=== PATIENT | male | born 1970 | race Caucasian/White ===

== ENCOUNTER 2018-03-24 21:38 | Emergency (ER) | payer BC ==
[~2018-03-24] VITALS: Ht 185.4 cm; Wt 83.9 kg
--- NOTE | 2018-03-24 21:50 | NUR ---
PT BIBSELF C/O RIGHT SIDE CHEST PAIN X2 WEEKS. DENIES SOB, N/V/D, HEADACHE, DIZZINESS, TRAUMA. PT AAOX4. RESPIRATIONS EVEN AND UNLABORED. SKIN WARM AND INTACT. NO ACUTE DISTRESS NOTED AT THIS TIME. PT PLACED ON [employer], WILL CONTINUE TO MONITOR.
--- NOTE | 2018-03-24 22:00 | NUR ---
MD AT BEDSIDE FOR EVALUATION
--- NOTE | 2018-03-24 22:10 | NUR ---
IV INITIATED RIGHT AC 18G. LABS DRAWN FROM SITE AND SENT TO LAB. IV INTACT AND PATENT, PLACED ON SALINE LOCK.
[2018-03-24] MEDS ORDERED: IBUPROFEN 600 MG TABLET PO ONE ×2 (22:24→22:30)
[2018-03-24 22:33] LABS: BASOPHILS % (AUTO) 0.3 % (0.0-2.0); EOSINOPHILS % (AUTO) 5.3 % (0.0-6.0); HEMATOCRIT 38 % (39-51); LYMPHOCYTES # (AUTO) 2.6 /CMM (0.8-4.8); LYMPHOCYTES % (AUTO) 26.7 % (20.0-44.0); MEAN CORPUSCULAR HGB CONC 34 g/dl (31.0-36.0); MEAN CORPUSCULAR VOLUME 96 fL (80-96); MONOCYTES # (AUTO) 0.8 /CMM (0.1-1.30); MONOCYTES % (AUTO) 7.7 % (2.0-12.0); NEUTROPHILS # (AUTO) 5.9 /CMM (1.8-8.9); PLATELET COUNT (AUTO) 356 /CMM (150-450); RED BLOOD CELL COUNT(AUTO) 3.93 MIL/uL (4.5-6.0); WHITE BLOOD COUNT (AUTO) 9.9 K/uL (4.3-11.0)
--- NOTE | 2018-03-24 22:38 | NUR ---
RADIOLOGY AT BEDSIDE FOR CXR
[2018-03-24 22:41] LABS: CALCIUM, SERUM 9.2 mg/dL (8.5-10.1); CREATININE 0.9 mg/dL (0.6-1.3); POTASSIUM 3.9 mmol/L (3.5-5.1)
[2018-03-24 22:53] LABS: ALBUMIN 3.6 g/dL (3.4-5.0); BILIRUBIN,DIRECT 0.1 mg/dL (0.0-0.2); BILIRUBIN,TOTAL 0.3 mg/dL (0.2-1.0); TOTAL PROTEIN, SERUM 8.3 g/dL (6.4-8.2)
--- NOTE | 2018-03-25 01:36 | NUR ---
EXCEL ANALYST AT BEDSIDE FOR BLOOD DRAW
--- NOTE | 2018-03-25 02:55 | NUR ---
Patient discharged to home in stable condition. Written and verbal after care instructions given. Patient verbalizes understanding of instruction. IV removed. Catheter intact and site benign. Pressure and 4x4 applied to site. No bleeding noted. Pt ambulatory with a steady gait
[2018-03-25 02:57] VITALS: BP 125/72
== END 2018-03-25 02:58 | disposition home or self-care (01) ==
LOC: ER 21:39
DX: M77.9 Enthesopathy, unspecified (principal); R07.89 Other chest pain; I25.2 Old myocardial infarction; Z95.818 Presence of other cardiac implants and grafts
CPT/HCPCS: 36415 ×2; 71045; 80048; 80076; 84484 ×2; 85025; 85378; 93005 ×2; 99284; A4606